=== PATIENT | female | born 1955 | race Caucasian/White ===

== ENCOUNTER 2021-07-31 11:08 | Outpatient (CLI) | payer MEDICARE ==
[2021-07-31 21:48] LABS: SARS-CoV-2 PCR by NAA Not Detected (NotDetected)
== END 2021-07-31 11:09 | disposition home or self-care (01) ==
LOC: CSHLAB 11:08
PROVIDERS: ATTEND Internal Medicine Gastroenterology
DX: Z01.812 Encounter for preprocedural laboratory examination (principal); Z20.822 Contact with and (suspected) exposure to COVID-19; K21.9 Gastro-esophageal reflux disease without esophagitis; Z12.11 Encounter for screening for malignant neoplasm of colon
CPT/HCPCS: U0003; U0005

== ENCOUNTER 2021-08-02 06:30 | Day surgery (SDC) | payer MEDICARE ==
[2021-07-31 13:20] VITALS: BMI 33.1
[2021-08-02] MEDS ORDERED: Lidocaine 1% MPF 2 ML VIAL ONE (07:07)
[2021-08-02] MEDS ORDERED: PROPOFOL 40 ML ONE (08:36)
[2021-08-02] MEDS ORDERED: Lidocaine 2% MPF 10 ML AMP (For Epidural Use) ONE (08:36)
[2021-08-02] MEDS ORDERED: PROPOFOL 20 ML ONE ×2 (08:55→09:39)
== END 2021-08-02 10:18 | disposition home or self-care (01) ==
LOC: CSHSDC 06:30
PROVIDERS: ATTEND Internal Medicine Gastroenterology
PROC: 0DB68ZZ Excision of Stomach, Via Natural or Artificial Opening Endoscopic (ICD-10-PCS; principal; 2021-08-02)
PROC: 0DJD8ZZ Inspection of Lower Intestinal Tract, Via Natural or Artificial Opening Endoscopic (ICD-10-PCS; 2021-08-02)
DX: Z12.11 Encounter for screening for malignant neoplasm of colon (principal); K29.50 Unspecified chronic gastritis without bleeding; K31.7 Polyp of stomach and duodenum; K21.9 Gastro-esophageal reflux disease without esophagitis; K44.9 Diaphragmatic hernia without obstruction or gangrene; K57.30 Diverticulosis of large intestine without perforation or abscess without bleeding; K64.9 Unspecified hemorrhoids
CPT/HCPCS: 43239; G0121; 88305; J2704